=== PATIENT | female | born 1955 | race Caucasian/White ===

== ENCOUNTER → 2017-07-11 | Outpatient (CLI) | payer BC ==
--- NOTE | 2017-07-12 13:58 | MAMMOGRAPHY REPORT ---
BILATERAL DIGITAL SCREENING MAMMOGRAM TOMOSYNTHESIS WITH CAD: 07/11/2017 CLINICAL HISTORY: Routine screening. Patient has no complaints. TECHNIQUE: Breast tomosynthesis in addition to standard 2D mammography was performed. Current study was also evaluated with a Computer Aided Detection (CAD) system. COMPARISON: Comparison is made to exams dated: 07/10/2016 mammogram, 07/07/2015 mammogram, 07/06/2014 m ammogram, 07/03/2013 mammogram, 06/18/2012 mammogram, and 06/15/2011 mammogram - [facility] enter. BREAST COMPOSITION: The tissue of both breasts is almost entirely fatty. FINDINGS: No suspicious masses, calcifications, or areas of architectural distortion are noted in ei ther breast. There has been no significant interval change compared to prior exams. IMPRESSION: ACR BI-RADS CATEGORY 1: NEGATIVE There is no mammographic evidence of malignancy. A 1 year screening mammogram is recommended. The pa tient will receive written notification of the results. Approximately 10% of breast cancers are not detected with mammography. A negative mammographic report should not delay biopsy if a clinically suggestive mass is present. Florina Barros M.D. /:07/11/2017 16:17:34 Watch Engine Operator: Bailee FARIAS(Claudia)(Luis)(BD), [facility] letter sent: Normal 1/2 BI-RADS Code: ACR BI-RADS Category 1: Negative
== END | disposition home or self-care (01) ==
LOC: C.MAMM 15:34
PROVIDERS: ATTEND Family Medicine
DX: Z12.31 Encounter for screening mammogram for malignant neoplasm of breast (principal)

== ENCOUNTER → 2018-07-12 | Outpatient (CLI) | payer BC ==
--- NOTE | 2018-07-15 13:56 | MAMMOGRAPHY REPORT ---
BILATERAL DIGITAL SCREENING MAMMOGRAM TOMOSYNTHESIS WITH CAD: 07/12/2018 CLINICAL HISTORY: Routine screening. Patient has no complaints. TECHNIQUE: Breast tomosynthesis in addition to standard 2D mammography was performed. Current study w as also evaluated with a Computer Aided Detection (CAD) system. COMPARISON: Comparison is made to exams dated: 07/11/2017 mammogram, 07/10/2016 mammogram, 07/07/2015 m ammogram, 07/06/2014 mammogram, 07/03/2013 mammogram, and 06/18/2012 mammogram - [facility] enter. BREAST COMPOSITION: The tissue of both breasts is almost entirely fatty. FINDINGS: There is a newly visualized oval circumscribed 4 mm mass within the right medial breast at approximat osiel 3:00, for which targeted ultrasound and possible additional spot compression views are recommende d for further evaluation. This may represent a cyst. The remainder of both breasts are stable compared to prior exams, without suspicious masses, calcific ations, or areas of architectural distortion noted. IMPRESSION: ACR BI-RADS CATEGORY 0: INCOMPLETE EVALUATION: NEED ADDITIONAL IMAGING EVALUATION Right breast mass, for which additional imaging evaluation is recommended. The patient will be saunders d to schedule an appointment. Some breast cancers are not detected with mammography. A negative mammographic report should not shamika y biopsy if a clinically suggestive mass is present. Floirna Barros M.D. ah/:07/12/2018 16:48:22 Tree Planter: RT Tiffanie(R)(M), [facility] letter sent: Addl Imaging 0 BI-RADS Code: ACR BI-RADS Category 0: Incomplete Evaluation: Need Additional Imaging Evaluation
== END | disposition home or self-care (01) ==
LOC: C.MAMM 15:20
PROVIDERS: ATTEND Family Medicine
DX: Z12.31 Encounter for screening mammogram for malignant neoplasm of breast (principal); N63.10 Unspecified lump in the right breast, unspecified quadrant

== ENCOUNTER 2021-07-26 08:06 | Observation (INO) ==
--- NOTE | 2021-05-27 15:13 | PAT Medication Instructions ---
Medication Instructions Date of Service May 27, 2021 Home Medications Medication Instructions Recorded Wheeled Walker #1 ea 08/09/20 Wheeled Walker #1 ea 04/22/21 atorvastatin 20 mg tablet 20 mg PO QAM lisinopril 20 mg tablet 40 mg PO QAM verapamil 240 mg tablet,extended release 240 mg PO QAM A-C-E-zinc ox-cupric ox-lutein [Ocular Vitamins] 1 tab PO QAM Potassium 99 mg PO QAM aspirin [Aspir-81] 81 mg PO QAM calcium carbonate [Calcium 600] 600 mg PO QAM hydrochlorothiazide 25 mg PO QAM ibuprofen 600 mg PO BID PRN multivitamin 1 tab PO QAM ascorbic acid (vitamin C) [Vitamin C] 500 mg PO QAM ASK your surgeon for instructions ibuprofen 600 mg PO BID PRN STOP taking 2 weeks before surgery A-C-E-zinc ox-cupric ox-lutein [Ocular Vitamins] 1 tab PO QAM DO NOT take the morning of surgery lisinopril 20 mg tablet 40 mg PO QAM Potassium 99 mg PO QAM calcium carbonate [Calcium 600] 600 mg PO QAM hydrochlorothiazide 25 mg PO QAM multivitamin 1 tab PO QAM ascorbic acid (vitamin C) [Vitamin C] 500 mg PO QAM Take morning of surgery With a small sip of water, OTHERWISE NOTHING TO EAT OR DRINK AFTER MIDNIGHT: atorvastatin 20 mg tablet 20 mg PO QAM verapamil 240 mg tablet,extended release 240 mg PO QAM aspirin [Aspir-81] 81 mg PO QAM (unless surgeon directs otherwise) Other Notes If you have any questions please call us at [phone] or [phone] or [phone] or [phone]
--- NOTE | 2021-06-01 08:22 | Anesthesiology Consultation ---
Date of Service June 01, 2021 Assessment & Plan (1) Encounter for pre-operative examination: Chart Review Chart Review: Acceptable Risk for Surgery (pending preop Covid testing results ) and Patient seen in Pre Admission Testing Per PAT appt on 06/01/21, pt resides in [facility]. Wears mask per [facility] guidelines. Pt vaccinated for Covid. No known Covid positive contacts or Covid related symptoms. No known Covid infection in the past 90 days. Pt plans to attend 50 year class reunion on 07/16/21. Pt will wear mask at event. Preop Covid testing scheduled 07/22/21= will await results. Educated on importance of self quarantining, social distancing and wearing mask in public both for the patient after Covid testing done Teaching & Discussion Pre-Anesthesia Teaching/Discussion Notes: Instructed NPO after midnight before surgery,except medications with 15 cc of water. Medication instructions provided according to the PAT guidelines. History Surgery Operation Date: 07/26/21 08:50 Proposed Procedures p Right Total Knee Arthroplasty(Right) - Wood Barcenas MD Height/Weight Height: 5 ft 5.5 in Weight: 90.6 kg Allergies Allergy/AdvReac Type Severity Reaction Status Date / Time No Known Allergies Allergy Verified 05/26/21 08:31 Medications Home Medications Medication Instructions Recorded Confirmed Last Taken atorvastatin 20 mg tablet (Lipitor) 20 mg PO QAM 04/30/20 05/26/21 Unknown lisinopril 20 mg tablet 40 mg PO QAM 04/30/20 05/26/21 Unknown verapamil 240 mg tablet,extended 240 mg PO QAM 04/30/20 05/26/21 Unknown release Wheeled Walker #1 ea 08/09/20 08/09/20 Unknown Potassium 99 mg PO QAM 10/19/20 05/26/21 Unknown aspirin 81 mg tablet,delayed 81 mg PO QAM 10/19/20 05/26/21 Unknown release calcium carbonate 600 mg calcium 600 mg PO QAM 10/19/20 05/26/21 Unknown (1,500 mg) tablet (Calcium) hydrochlorothiazide 25 mg tablet 25 mg PO QAM 10/19/20 05/26/21 Unknown ibuprofen 200 mg tablet 600 mg PO BID PRN 10/19/20 05/26/21 Unknown multivitamin 1 tab PO QAM 10/19/20 05/26/21 Unknown vit A 7,160 unit-vit C 113 mg-vit 1 tab PO QAM 10/19/20 05/26/21 Unknown B-jnno-htvylk-lutein 0.5 mg tablet (Ocular Vitamins) Wheeled Walker #1 ea 04/22/21 Unknown ascorbic acid (vitamin C) 500 mg 500 mg PO QAM 05/26/21 05/26/21 Unknown tablet (Vitamin C) Past Medical History Medical History Arthritis Breast cancer left (1999), s/p left breast lumpectomy (no limb restrictions), previously on tamoxifen x 5 years No current issues Elevated cholesterol Hypertension Obesity Urinary, incontinence, stress female Exercise / Class Metabolic Activity II 4-5 Yardwork/Stairs/Walk up hill (one flight of stairs - no chest pain or SOB ) Past Family History Family History Father Family history of diabetes mellitus Mother Family history of diabetes mellitus Grandfather (Maternal) Family hx of colon cancer Other Breast cancer Colon cancer Deep vein thrombosis Past Surgical History Surgical History History of 3 sections History of anesthesia reaction Nausea with spinal for c/s History of cataract surgery R/L History of colonoscopy History of lumpectomy of left breast 1999 Past Anesthesia History No Hx of Anesthesia Complications (with exception to N/V directly after spinal anesthesia with last two C-sections ) and No Family Hx of Anesthesia Complications History of PONV No Hx of Motion Sickness and History of PONV (only with last two C-sections ) Social History Smoking Status: Never smoker Do You Dip or Chew Tobacco: No Hx Alcohol Use: Yes Alcohol type: wine alcohol intake frequency: a few times a month Hx Substance Use: No Review of Systems Patient denies chest pain, shortness of breath, dyspnea on exertion, reflux, co ugh, wheezing, palpitations. No hx of seizures, stroke, VT, no significant snoring/witnessed apnea. No hx of blood clots or blood transfusions Physical Exam Vital Signs VITALS BP 144/84 P 83 TEMP 98.1 SP02 96% RESP 16 Constitutional no acute distress ENMT Mouth: no TMJ clicking Thyromental Distance: > or= 3.5 Finger Breadths (4.0) Mallampati Class: II Crowns to molars and side teeth Permanent implant to upper right side teeth Neck neck extension not limited Respiratory normal respiratory effort; no respiratory distress Auscultation: lungs clear to auscultation bilaterally; no wheezes Cardiovascular Rate/Rhythm: regular rate and regular rhythm Heart Sounds: no murmur Vessels: no carotid bruit Musculoskeletal Spine: no pain with cervical ROM Extremities: extremities normal to inspection Psychiatric Orientation: alert Lab Results Anesthesia Preop Results Results Anesthesia Widget: WBC 7.13 K/uL (4.8-10.8) 06/01/21 Hgb 13.1 g/dL (12.0-16.0) 06/01/21 Hct 39.0 % (37-47) 06/01/21 Plt 251 K/uL (130-400) 06/01/21 Na 137 mmol/L (136-145) 06/01/21 K 4.1 mmol/L (3.5-5.1) 06/01/21 Cl 103 mmol/L (98-107) 06/01/21 CO2 29 mmol/L (21-32) 06/01/21 BUN 15 mg/dl (7-18) 06/01/21 Creat 0.66 mg/dl (0.6-1.2) 06/01/21 Glucose Level 97 mg/dl (70-99) 06/01/21 PT 9.8 Seconds (9.0-12.0) 06/01/21 PTT 23.9 Seconds (21.0-31.0) 06/01/21 INR 1.0 (0.9-1.1) 06/01/21 Blood Type O Positive 06/01/21 Antibody Screen NEGATIVE 06/01/21 Testing Electrocardiogram Date: 11/02/20 Findings: + NSR @ (73 bpm) Anterior infarct, age undetermined. (Anterior infarct noted on 09/01/2020 EKGpatient had subsequent stress test 09/02/2020 that was negative for ischemia) Chest X-Ray Date: 09/02/20 Findings: + NAD Stress Test Date: 09/02/20 Type: exercise Resting EF: 65 to 70% Resting LV Function: normal Resting RWMA: + none Valvular Disease: no significant valvular disease Negative stress echo for ischemia at 105% MPHR. Negative exercise EKG for ischemia 100% MPHR. Mild hypertensive blood pressure response to exercise. No arrhythmia. Poor to fair exercise tolerance. 5 METS achieved. Resting echo: Moderate concentric LVH. Mild left atrial dilation. Normal estimated RVSP. Grade 1 diastolic dysfunction.
--- NOTE | 2021-07-22 14:08 | History and Physical Report ---
DATE OF ADMISSION: 07/26/2021 CHIEF COMPLAINT: Bilateral knee pain and discomfort, right side greater than left. HISTORY OF PRESENT ILLNESS: A 66-year-old female who has got a long history of knee pain and discomf ort. She was actually scheduled to have her left knee replaced, but got canceled due to the COVID ep idemic. She returns for followup and further management of her knees. Both knees are hurting. The shots have become less successful over time. The right knee is actually bothering her more than the left at this time. It is a global pain. The more she is up on it, the more it hurts. She would now like to proceed with right knee replacement. PAST MEDICAL HISTORY: Significant for, 1. Hypertension. 2. Elevated cholesterol. 3. Obesity. 4. Breast cancer. PAST SURGICAL HISTORY: Includes, 1. x3. 2. Oral surgery. ALLERGIES: None. CURRENT MEDICATIONS: Include, 1. Atorvastatin. 2. Verapamil. 3. Lisinopril. 4. Ocuvite. 5. Aspirin. 6. Multivitamin. 7. Calcium. 8. Potassium. SOCIAL HISTORY: A 66-year-old female. One drink per week. Does not smoke. FAMILY HISTORY: Noncontributory. REVIEW OF SYSTEMS: Negative for diabetes. Denies any chest pain or shortness of breath. No history of DVT or PE. No known bleeding problems. PHYSICAL EXAMINATION: GENERAL: Shows a pleasant middle-aged female. Looks to be in good health. HEENT: Benign. NECK: Supple. No lymphadenopathy. LUNGS: Clear to auscultation. HEART: Has a regular rate and rhythm. ABDOMEN: Soft, nontender, nondistended. EXTREMITIES: Grossly neurovascularly intact except as follows: Examination of both knees revealed p atient walks with a bit of an antalgic gait. She has got varus alignment to both knees. She has got tenderness over the medial joint lines bilaterally. She has bony hypertrophy medially in both knees . Range of motion is symmetric with about 5 degrees short of full extension to 120 degrees of flexio n. There is no instability. No pain with hip motion on either side. X-RAYS: X-rays of both knees reveal advanced bilateral knee DJD. She has got complete loss of her m edial joint space on both sides. She got osteophytes medially. She has subchondral sclerosis. The left knee may be just slightly more advanced than the right. ASSESSMENT: A 66-year-old female with advanced bilateral knee degenerative joint disease. She was a ctually scheduled for left knee replaced in the past, but canceled it due to the COVID epidemic. She continues to be limited by her knees and would like to proceed with surgical treatment/knee replacem ent. The right knee is bothering her more now and she would like to have her right knee replaced. PLAN: We will take her to the operating room and do right total knee replacement. The risks and fernando efits of this procedure were explained to the patient including but not limited to DVT, PE, , in fection, neurological injury, vascular injury, bleeding problem, pain, limited range of motion, stiff ness, failure to relieve her symptoms, incomplete relief of symptoms, need for further surgery in the future, fracture, leg length inequality, nerve palsy, etc. The patient understands and desires to p roceed. Informed consent was obtained. We did talk about holding her lisinopril on the morning of surgery. Job ID: [id number]
[~2021-07-26 08:06] MED LIST: ACETAMINOPHEN 500 MG TAB PO SCH; BUPIVACAINE 0.5 % 5 MG/1 ML MPF 30ML VIAL ONE; BUPIVACAINE 0.5 % 5 MG/1 ML PF 10ML VIAL ONE; BUPIVACAINE LIPOSOME/PF 266 MG, BUPIVACAINE/EPINEPHRINE 50 ML, SODIUM CHLORIDE 0.9% 30 ... INFIL SCH; FAMOTIDINE 20 MG TAB PO SCH; GABAPENTIN 300 MG CAP PO SCH; LR 500ML BOLUS, THEN 15ML/HR IV SCH; LR 60ML/HR IV SCH; Scopolamine 1 MG TDSY TD SCH; TRANEXAMIC ACID 1,000 MG **IV Intra-op IV SCH; ceFAZolin 2000MG 2,000 MG/15 ML SYR IV SCH
--- NOTE | 2021-07-26 08:52 | History & Physical Bridge Note ---
Date of Service July 26, 2021 History & Physical Bridge Note I have examined the patient, reviewed the History & Physical and in the interval since the performance of the History & Physical I have noted the following changes of clinical significance: no changes noted
[2021-07-26] MEDS ORDERED: MIDAZOLAM HCL 1 MG/ML 2ML VIAL ONE (09:21)
[2021-07-26] MEDS ORDERED: ePHEDrine sulfate 50 MG/ML AMP IV PRN (10:13)
[2021-07-26] MEDS ORDERED: ATROPINE SULFATE 0.1 MG/ML 10ML SYR IV PRN (10:13)
[2021-07-26] MEDS ORDERED: fentaNYL citrate 100 MCG/2 ML VIAL IV PRN (10:13)
[2021-07-26] MEDS ORDERED: ONDANSETRON INJ 2 MG/ML 2 ML VIAL IV PRN ×2 (10:13→13:58)
[2021-07-26] MEDS ORDERED: HYDROmorphone INJ 2 MG/ML SYR/VIAL IV PRN (10:13)
[2021-07-26] MEDS ORDERED: BUPIVACAINE LIPOSOME 1.3% 266 MG/20 ML VIAL ONE (10:54)
[2021-07-26] MEDS ORDERED: SODIUM CHLORIDE 0.9% PF 50 ML VIAL ONE (10:54)
[2021-07-26] MEDS ORDERED: EPINEPHrine INJ 1 MG/ML AMP ONE (10:55)
[2021-07-26] MEDS ORDERED: BUPIVACAINE 0.25% 30 ML VIAL ONE (10:55)
[2021-07-26] MEDS ORDERED: LIDOCAINE 2% 2 ML VIAL/AMP(20MG/ML) INFIL ONE (11:29)
[2021-07-26] MEDS ORDERED: PROPOFOL IV EMULSION 10 MG/ML 20 ML VIAL IV ONE (11:29)
--- NOTE | 2021-07-26 13:04 | Operative Report ---
Post Operative Report Pre & Post Diagnosis Operation Date: 07/26/21 10:40 Pre-Op Diagnosis: Right Knee Advanced Degenerative Joint Disease Post-Op Diagnosis: Right Knee Advanced Degenerative Joint Disease I identified the patient and participated in the time-out.: Yes Procedure Operation Date: 07/26/21 10:40 Actual Procedures p Right Total Knee Arthroplasty(Right) - Wood Barcenas MD Surgeon Wood Barcenas MD Real Estate Services Coordinator Pete Cunningham PA-C Estimated Blood Loss 50 Findings Consistent with Post-Op Diagnosis Operative findings were advanced right knee tricompartment DJD. She had a grade 4 changes in all 3 compartments most severe in the medial compartment. Pretty extensive disease elsewhere as well. Moderate-sized joint effusion. Couple loose bodies. Osteophytes in all 3 compartments. Fluids 1100 cc. Specimens Right knee sent for pathology. Drains None. Anesthesia Type Spinal MAC Complications none Disposition Accompanied Patient To Recovery: No Indications Patient is a 66-year-old who has had a long history of bilateral knee pain discomfort. That she been through extensive conservative treatment which became less successful over time. Is actually scheduled for knee replacement the past but canceled due to the Covid epidemic. She now presents for right knee replacement. Description of Procedure Operative input consisted of: 1. Biomet Vanguard size 65 right posterior stabilized femoral component. 2. Biomet size 67 tibial tray. 3. 10 mm posterior stabilized polyethylene insert. 4. 28 x 8 all polypatella. The patient was taken to the operating, identified, and placed on the operating table supine position but all contractors were properly padded. IV antibiotics were provided by anesthesia team. A spinal anesthetic and abductor canal block had been applied in the holding area. Wilhelm catheter was placed in sterile fashion. Right thigh tip was then placed in the right lower extremities and prepped draped in usual sterile fashion. Right leg was elevated exsanguinated with use of an Esmarch interspace at 3 mmHg. An anterior approach of the right knee was then performed through longitudinal incision centered over the patella. Sharp dissection was carried through subcutaneous this down the extensor mechanism. A medial parapatellar arthrotomy incision was made. Some subperiosteal dissection was carried out medially. The fat pad was resected beneath patella tendon. The lateral patellofemoral ligament was released. Patella was subluxated laterally and the knee was flexed. The osteophytes were taken off distal femur. The ACL and PCL were then released from the distal femur and the tibia subluxated anteriorly. The external tibial alignment jig was then placed in the interface the tibia and adjusted 14 mm medially. Proximal tibial cut was made remove about a millimeter bone from most deficient aspect medial tibial plateau. Some osteophytes were taken off medial and posterior medially. The tibia sized to a size 67. Attention drawn the femur. The distal femur was entered with a sharp drop with intramedullary canal was suction. A right 5 degree valgus cutting guide was placed. Distal femoral cutting block was pinned in place. Distal femoral cut was made to take an additional 3 mm of bone off distal femur. The femur was then sized to a size 65. We downsized this almost an entire size. The AP cutting block was pinned parallel to the epicondylar axis which was 4 degrees of external rotation. Anterior cut, anterior chamfer, posterior cut, posterior chamfer cuts were made. The box cutting guide was placed in just slight lateral box cut was made. The knee was flexed. The remnants of the medial and lateral menisci were excised. The osteophytes were taken off the posterior aspect of femur. Trial femoral component was placed. The tibial tray was pinned in maximum external rotation and the drill and stem punch were used to create defect in proximal tibia for the tibial tray. Knee was then trialed and the 10 mm insert fit most appropriately. Attention drawn to the patella. The patella was cleaned of all soft tissues. Patella thickness measured 18 mm in thickness was cut down to 12. Sized to a size 28 patella. The lug holes for the 28 patella were then placed. The lateral osteophyte is moved. Patella button was placed. Knee was taken through range of motion patella tracked nicely with no thumbs test. Attention drawn to placing permanent components. All trial components were removed. Bone plug was placed into the distal femur limit blood loss. Double batch [place] G cement was mixed. Biomet [employer] size 65 right posterior stabilized femoral component, size 67 tibial tray, 10 mm posterior stabilized polyethylene insert, and a 28 x 8 all polypatella then cemented in place. Knee was brought out in full extension total cement hardened. Final cement check was then performed. Pericapsular tissues were injected with total of 100 cc of combination of 20 cc of Exparel, 30 cc normal saline, 50 cc of quarter percent Marcaine with epinephrine. Patient did receive 1 g tranexamic acid. The tourniquet was let down for final turn time 53 minutes. Hemostasis surgery electrocautery. The extensor mechanism closed with combination 1 PDS suture and #1 Vicryl suture in [id number] fashion to the extensor mechanism checked found to be intact and subcutaneous tissue then closed with 2 Dexon suture in a buried interrupted fashion skin was closed skin shima. Leg was then cleaned and dried a sterile dressing with Xeroform, 4 x 4's, sterile cast padding, Silvio bandage were applied. Patient then transferred to the recovery room in stable condition. Patient tolerated procedure well and there were no complications. Pete Cunningham, my physician nurse's assistant, was present for the entire procedure. His assistance was essential and required for appropriate patient positioning, prepping and draping, surgical exposure, performing the technical details of the operation, placement the implants, closure of the wound, and placement of the sterile bandage. I attest to the content of the Intraoperative Record and any orders documented therein. Any exceptions are noted below.
--- NOTE | 2021-07-26 13:22 | Anesthesiology Progress Note ---
Date of Service July 26, 2021 Anesthesia Post Procedure Vital Signs Vital Signs: Temp Pulse Pulse Resp BP Pulse Ox 07/26/21 13:15 58 L 14 125/65 100 07/26/21 13:05 66 13 115/62 100 07/26/21 12:59 36.6 C 71 88 14 123/64 100 07/26/21 09:58 37.2 C 88 20 162/93 H 98 07/26/21 08:42 37.5 C 80 20 143/96 H 98 Pain Intensity Right Knee: Pain Intensity: 5 Transfer of Care Handoff Completed per policy Notes Mental Status: alert / awake / arousable and participated in evaluation Patient Amnestic to Procedure: Yes Nausea / Vomiting: adequately controlled Pain: adequately controlled Airway Patency, RR, SpO2: stable & adequate BP & HR: stable & adequate Hydration State: stable & adequate Anesthetic Complications: no major complications apparent and Pt Satisfied with anesthetic care
--- NOTE | 2021-07-26 13:44 | XRay Report ---
XR knee RT 1 or 2V routine CLINICAL HISTORY: Postoperative evaluation. COMPARISON: Knee radiographs April 30, 2020. FINDINGS: Alignment of the total right knee arthroplasty is anatomic. No periprosthetic fracture. Th ere is no unexpected radiopaque foreign body. There are skin shima. IMPRESSION: Expected findings following total right knee arthroplasty. ACT 112: Negative or not required by law. Electronically signed by: Piero Henson M.D. 07/26/2021 1:43 PM
[2021-07-26] MEDS ORDERED: HYDROmorphone INJ 0.5 MG/0.5 ML SYR IV PRN (13:58)
[2021-07-26] MEDS ORDERED: oxyCODONE HCL IR 5 MG TAB (IMMEDIATE RELEASE) PO PRN (13:58)
[2021-07-26] MEDS ORDERED: bisacodyL 10 MG SUPP PR PRN (13:58)
[2021-07-26] MEDS ORDERED: MAGNESIUM HYDROXIDE SUSP 30 ML UDC PO PRN (13:58)
[2021-07-26] MEDS ORDERED: NALOXONE HCL 0.4 MG/1 ML VIAL/CARP IV PRN (13:58)
[2021-07-26] MEDS ORDERED: ALUMINUM/MAGNESIUM SUSP 30 ML UDC PO PRN (13:58)
[2021-07-26] MEDS ORDERED: METOCLOPRAMIDE HCL INJ 5 MG/ML 2 ML VIAL IV PRN (13:58)
[2021-07-26] MEDS: SODIUM CHLORIDE 0.9% 1000ML 1,000 ML IV SCH (15:33)
[2021-07-26] MEDS: Scopolamine CHECK PATCH PLACEMENT SCH (15:34)
[2021-07-26] MEDS: ACETAMINOPHEN 500 MG TAB PO SCH ×2 (15:37→22:41)
[2021-07-26] MEDS: KETOROLAC TROMETHAMINE 15 MG/ML VIAL IV SCH ×2 (15:38→20:03)
[2021-07-26] MEDS: ceFAZolin 2000MG 2,000 MG/15 ML SYR IV SCH (18:22)
[2021-07-26] MEDS ORDERED: TRANEXAMIC ACID / 0.7% NACL 1,000 MG/100 ML BAG IV SCH (19:00)
[2021-07-26] MEDS ORDERED: SENNA 8.6 MG TAB PO SCH (21:00)
[2021-07-26] MEDS: DOCUSATE SODIUM 100 MG CAP PO SCH (22:39)
[2021-07-26] MEDS: ASPIRIN 81 MG ECTAB PO SCH (22:39)
[2021-07-26] MEDS: TAPENTADOL HCL ER 50 MG TABCR PO SCH (22:41)
[2021-07-27] MEDS: Scopolamine CHECK PATCH PLACEMENT SCH ×2 (01:14→08:14)
[2021-07-27] MEDS: ceFAZolin 2000MG 2,000 MG/15 ML SYR IV SCH (02:08)
[2021-07-27] MEDS: KETOROLAC TROMETHAMINE 15 MG/ML VIAL IV SCH ×2 (02:08→08:12)
[2021-07-27] MEDS: SODIUM CHLORIDE 0.9% 1000ML 1,000 ML IV SCH (02:50)
[2021-07-27] MEDS: ACETAMINOPHEN 500 MG TAB PO SCH (06:15)
[2021-07-27 06:38] LABS: Hematocrit (blood only) 32.8 % (37-47); Hemoglobin 10.7 g/dL (12.0-16.0); Mean Corpuscular Hemoglobin 30.1 pg (25-34); Mean Corpuscular Hgb Conc 32.6 g/dL (32-36); Mean Corpuscular Volume 92.4 fL (80-100); Mean Platelet Volume 10.6 fL (7.4-10.4); Platelet Count 204 K/uL (130-400); RDW Coefficient of Variation 13.4 % (11.5-14.5); RDW Standard Deviation 45.4 fL (36.4-46.3); Red Blood Count 3.55 M/uL (4.2-5.4); White Blood Count 9.97 K/uL (4.8-10.8)
[2021-07-27 07:05] LABS: BUN Creatinine Ratio 17.4 (10-20); Calcium 8.8 mg/dl (8.5-10.1); Creatinine Clr Calc Pharmacy 84.1 ml/min; Est GFR (African American) 99.7 ml/min; Est GFR (Non-African American) 86.1 ml/min
[2021-07-27] MEDS ORDERED: dexAMETHasone 10 MG in SYRINGE 0 ML IV SCH (08:00)
[2021-07-27] MEDS: ASPIRIN 81 MG ECTAB PO SCH (08:13)
[2021-07-27] MEDS: DOCUSATE SODIUM 100 MG CAP PO SCH (08:14)
[2021-07-27] MEDS: TAPENTADOL HCL ER 50 MG TABCR PO SCH (08:14)
[2021-07-27] MEDS ORDERED: VERAPAMIL HCL 240 MG TABCR PO SCH (09:00)
[2021-07-27] MEDS ORDERED: lisinopril 40 MG TAB PO SCH (09:00)
[2021-07-27] MEDS ORDERED: hydroCHLOROthiazide 25 MG TAB PO SCH (09:00)
[2021-07-27] MEDS ORDERED: ASCORBIC ACID 500 MG TAB PO SCH (09:00)
[2021-07-27] MEDS ORDERED: CALCIUM 600MG + VIT D 400 IU TAB PO SCH (09:00)
[2021-07-27] MEDS ORDERED: ATORVASTATIN 20 MG TAB PO SCH (09:00)
[2021-07-27] MEDS ORDERED: NON-FORMULARY MEDICATION (Potassium 99 MG) PO SCH (09:00)
[2021-07-27] MEDS ORDERED: MULTIVITAMIN TAB PO SCH ×2 (09:00)
[2021-07-27] MEDS ORDERED: [UNRECOGNIZED DRUG - OTHER] PO SCH (09:00)
--- NOTE | 2021-07-27 14:09 | Progress Notes ---
DATE OF SERVICE: 07/27/2021 SUBJECTIVE: A 66-year-old white female postoperative day 1 from right knee replacement. She is doin g pretty well. Therapy has gone well. Pain is reasonably well controlled. No chest pain or shortne ss of breath. Not feeling dizzy or lightheaded. OBJECTIVE: VITAL SIGNS: Temperature 36.9. Vital signs stable. PHYSICAL EXAMINATION: GENERAL: Shows a pleasant middle-aged female. She was walking in the hallways with the therapist mike moreno I visited today. EXTREMITIES: Examination of the right leg reveals the dressing to be clean, dry and intact. She can dorsiflex and plantarflex her foot appropriately. She is neurologically intact. LABORATORY DATA: Hemoglobin 10.7. Hematocrit 32.8. Electrolytes are stable. ASSESSMENT: A 66-year-old white female postoperative day 1 from right knee replacement, doing pretty well. Pain is controlled. She is neurologically intact. PLAN: 1. DVT prophylaxis includes thigh-high TEDs, SCDs, and aspirin twice a day. 2. PT, OT, weightbear as tolerated. Right total knee protocol. 3. Pain control, doing pretty well with current pain regimen. 4. Disposition: Plan to discharge to home with some home health today after therapy. Job ID: [id number]
== END 2021-07-27 13:52 | disposition home health service (06) ==
LOC: ASU 08:06 → 3E 08:06
DX: Z79.82 Long term (current) use of aspirin; Z20.822 Contact with and (suspected) exposure to COVID-19; I10 Essential (primary) hypertension; Z85.3 Personal history of malignant neoplasm of breast; E78.00 Pure hypercholesterolemia, unspecified; Z79.899 Other long term (current) drug therapy; E66.9 Obesity, unspecified; M17.0 Bilateral primary osteoarthritis of knee

== ENCOUNTER 2025-06-23 05:17 | Observation (INO) ==
--- NOTE | 2025-05-19 15:02 | PAT Medication Instructions ---
Medication Instructions Date of Service May 19, 2025 Home Medications Medication Instructions Recorded Wheeled Walker #1 ea 08/09/20 Wheeled Walker #1 ea 07/19/21 amoxicillin 500 mg tablet 2,000 mg (4 x 500 mg) PO ONCE #4 09/28/21 tabs acetaminophen 500 mg capsule 1,000 mg (2 x 500 mg) PO TID Pain 01/15/22 30 days #180 caps ketorolac 10 mg tablet 10 mg PO Q6 Pain 5 days #20 tabs 01/15/22 sennosides 8.6 mg-docusate sodium 1 tab-cap PO DAILY #14 tabs 01/15/22 50 mg tablet (Senokot-S) ondansetron HCl 4 mg tablet 4 mg PO Q6 PRN nausea #30 tabs 01/24/22 oxycodone 5 mg tablet 5 - 10 mg (1 - 2 x 5 mg) PO Q6 PRN 01/24/22 pain #40 tabs oxycodone 5 mg tablet 5 mg PO Q6 PRN pain #30 tabs 02/02/22 atorvastatin 20 mg tablet (Lipitor) 20 mg PO QAM calcium carbonate (Calcium 600) 600 mg PO QAM hydrochlorothiazide 25 mg tablet 25 mg PO QAM multivitamin 1 tab PO QAM vit A 7,160 unit-vit C 113 mg-vit D-gizm-nyekjy-lutein 0.5 mg tablet (Ocular Vitamins) 1 tab PO QAM ascorbic acid (vitamin C) 500 mg tablet (Vitamin C) 500 mg PO QAM amoxicillin 500 mg tablet 2,000 mg (4 x 500 mg) PO ONCE acetaminophen 500 mg capsule 1,000 mg (2 x 500 mg) PO TID ketorolac 10 mg tablet 10 mg PO Q6 sennosides 8.6 mg-docusate sodium 50 mg tablet (Senokot-S) 1 tab-cap PO DAILY ondansetron HCl 4 mg tablet 4 mg PO Q6 PRN oxycodone 5 mg tablet 5 - 10 mg (1 - 2 x 5 mg) PO Q6 PRN oxycodone 5 mg tablet 5 mg PO Q6 PRN amlodipine 10 mg tablet 10 mg PO QAM aspirin 81 mg tablet,delayed release (Adult Aspirin Regimen) 81 mg PO QAM biotin 5 mg tablet 5 mg PO DAILY carvedilol 12.5 mg tablet 12.5 mg PO BID clonidine HCl 0.2 mg tablet 0.2 mg PO BID oxybutynin chloride 15 mg tablet,extended release 24 hr 15 mg PO QAM tolterodine 4 mg capsule,extended release 24 hr 4 mg PO QAM Continue as directed amoxicillin 500 mg tablet 2,000 mg (4 x 500 mg) PO ONCE ASK your surgeon for instructions ketorolac 10 mg tablet 10 mg PO Q6 ASK your prescriber and surgeon aspirin 81 mg tablet,delayed release (Adult Aspirin Regimen) 81 mg PO QAM STOP taking 2 weeks before surgery (or as soon as possible if surgery is within 2 weeks) vit A 7,160 unit-vit C 113 mg-vit N-rnfo-xlobev-lutein 0.5 mg tablet (Ocular Vitamins) 1 tab PO QAM biotin 5 mg tablet 5 mg PO DAILY DO NOT take the morning of surgery calcium carbonate (Calcium 600) 600 mg PO QAM hydrochlorothiazide 25 mg tablet 25 mg PO QAM multivitamin 1 tab PO QAM ascorbic acid (vitamin C) 500 mg tablet (Vitamin C) 500 mg PO QAM sennosides 8.6 mg-docusate sodium 50 mg tablet (Senokot-S) 1 tab-cap PO DAILY oxybutynin chloride 15 mg tablet,extended release 24 hr 15 mg PO QAM tolterodine 4 mg capsule,extended release 24 hr 4 mg PO QAM Take morning of surgery With a small sip of water, OTHERWISE NOTHING TO EAT OR DRINK AFTER MIDNIGHT: atorvastatin 20 mg tablet (Lipitor) 20 mg PO QAM acetaminophen 500 mg capsule 1,000 mg (2 x 500 mg) PO TID ondansetron HCl 4 mg tablet 4 mg PO Q6 PRN(if needed) oxycodone 5 mg tablet 5 - 10 mg (1 - 2 x 5 mg) PO Q6 PRN(if needed) oxycodone 5 mg tablet 5 mg PO Q6 PRN(if needed) amlodipine 10 mg tablet 10 mg PO QAM carvedilol 12.5 mg tablet 12.5 mg PO BID clonidine HCl 0.2 mg tablet 0.2 mg PO BID Take evening before surgery acetaminophen 500 mg capsule 1,000 mg (2 x 500 mg) PO TID ondansetron HCl 4 mg tablet 4 mg PO Q6 PRN(if needed) oxycodone 5 mg tablet 5 - 10 mg (1 - 2 x 5 mg) PO Q6 PRN(if needed) oxycodone 5 mg tablet 5 mg PO Q6 PRN(if needed) carvedilol 12.5 mg tablet 12.5 mg PO BID clonidine HCl 0.2 mg tablet 0.2 mg PO BID Other Notes If you have any questions please call us at [phone] or [phone] or [phone] or [phone]
--- NOTE | 2025-05-29 09:10 | Anesthesiology Consultation ---
Date of Service May 29, 2025 Assessment & Plan (1) Encounter for pre-operative examination: - Infectious disease screening: Per assessment on 05/29/25- No known recent infectious disease contacts or current infectious disease symptoms. - Outpatient joint assessment: Pt currently scheduled for inpatient pathway. If surgeon requests review for outpatient joint pathway, patient is not recommended candidate for outpatient joint program from anesthesia standpoint based on available information. - S/P Left TKR (01/17/2022): SAB at L3-4 (3 attempts) + regional at [facility] Chart Review Chart Review: Acceptable Risk for Surgery and Patient seen in Pre Admission Testing Teaching & Discussion Pre-Anesthesia Teaching/Discussion Notes: Instructed NPO after midnight before surgery,except medications with 15 cc of water. Medication instructions provided according to the PAT guidelines. History Surgery Operation Date: 06/23/25 07:00 Proposed Procedures p Right Total Hip Arthroplasty - Wood Barcenas MD Height/Weight Height: 5 ft 5.5 in Weight: 106.3 kg Allergies Allergy/AdvReac Type Severity Reaction Status Date / Time No Known Allergies Allergy Verified 05/19/25 12:48 Medications Home Medications Medication Instructions Recorded Confirmed Last Taken atorvastatin 20 mg tablet (Lipitor) 20 mg PO QAM 04/30/20 05/19/25 01/16/22 09:00 Wheeled Walker #1 ea 08/09/20 12/19/21 Unknown calcium carbonate (Calcium 600) 600 mg PO QAM 10/19/20 05/19/25 01/16/22 09:00 hydrochlorothiazide 25 mg tablet 25 mg PO QAM 10/19/20 05/19/25 01/16/22 09:00 multivitamin 1 tab PO QAM 10/19/20 05/19/25 01/16/22 09:00 vit A 7,160 unit-vit C 113 mg-vit 1 tab PO QAM 10/19/20 05/19/25 01/02/22 N-qquf-eziyyy-lutein 0.5 mg tablet (Ocular Vitamins) ascorbic acid (vitamin C) 500 mg 500 mg PO QAM 05/26/21 05/19/25 01/02/22 tablet (Vitamin C) Wheeled Walker #1 ea 07/19/21 12/19/21 Unknown amoxicillin 500 mg tablet 2,000 mg (4 x 500 mg) PO ONCE #4 09/28/21 05/19/25 Unknown tabs acetaminophen 500 mg capsule 1,000 mg (2 x 500 mg) PO TID Pain 01/15/22 05/19/25 Unknown 30 days #180 caps sennosides 8.6 mg-docusate sodium 1 tab-cap PO DAILY #14 tabs 01/15/22 05/19/25 Unknown 50 mg tablet (Senokot-S) amlodipine 10 mg tablet 10 mg PO QAM 05/19/25 05/19/25 Unknown aspirin 81 mg tablet,delayed 81 mg PO QAM 05/19/25 05/19/25 Unknown release (Adult Aspirin Regimen) biotin 5 mg tablet 5 mg PO DAILY 05/19/25 05/19/25 Unknown carvedilol 12.5 mg tablet 12.5 mg PO BID 05/19/25 05/19/25 Unknown clonidine HCl 0.2 mg tablet 0.2 mg PO BID 05/19/25 05/19/25 Unknown oxybutynin chloride 15 mg 15 mg PO QAM 05/19/25 05/19/25 Unknown tablet,extended release 24 hr tolterodine 4 mg capsule,extended 4 mg PO QAM 05/19/25 05/19/25 Unknown release 24 hr olmesartan 40 mg tablet 40 mg PO DAILY 05/29/25 05/29/25 Unknown Past Medical History Medical History Arthritis Breast cancer Left (1999) s/p left breast lumpectomy (no limb restrictions per patient) Previously on tamoxifen x 5 years Elevated cholesterol Hypertension Obesity Urinary, incontinence, stress female Exercise / Class Metabolic Activity III < 4 Walking/Shop/Light housework Past Family History Family History Father Family history of diabetes mellitus Mother Family history of diabetes mellitus Grandfather (Maternal) Family hx of colon cancer Other Breast cancer Colon cancer Deep vein thrombosis Past Surgical History Surgical History History of 3 sections History of anesthesia reaction Nausea with spinal for c/s History of cataract surgery R/L History of colonoscopy History of lumpectomy of left breast 1999 History of tooth extraction History of total left knee replacement Left TKR: SAB at L3-4 (3 attempts) + regional at [facility] (01/17/2022) History of total right knee replacement SAB at L3-L4, 1 attempt + PNB (07/26/2021) Past Anesthesia History No Hx of Anesthesia Complications and No Family Hx of Anesthesia Complications History of PONV No Hx of Motion Sickness and History of PONV (Nausea with spinal for c/s) Social History Smoking Status: Never smoker Do You Dip or Chew Tobacco: No Hx Alcohol Use: Yes Alcohol type: wine alcohol intake frequency: holidays/special occasions only Hx Substance Use: No substance use type: does not use Review of Systems Patient denies chest pain, shortness of breath, fever, chills, cough, wheezing, palpitations. Physical Exam Vital Signs BP 116/75 P 69 TEMP 98.2 SP02 96%RA RESP 16 Physical Full cervical extension range of motion. Full TMJ range of motion. TMD > 3.5 finger breaths Mallampati Score II Dentition: intact, + implant (right upper side) Lungs: clear throughout to auscultation Cardiac: regular rate and rhythm, no murmurs noted Spine: normal Carotid arteries: negative bruit Extremities: trace LE edema Lab Results Anesthesia Preop Results Results Anesthesia Widget: WBC 7.30 K/ul (4.8-10.8) 05/29/25 Hgb 12.2 g/dl (12.0-16.0) 05/29/25 Hct 36.1 % (37.0-47.0) L 05/29/25 Plt 214 K/uL (130-400) 05/29/25 Na 142 mmol/L (136-145) 05/29/25 K 4.1 mmol/L (3.5-5.1) 05/29/25 Cl 103 mmol/L (98-107) 05/29/25 CO2 32 mmol/L (21-32) 05/29/25 BUN 22 mg/dl (6-23) 05/29/25 Creat 0.76 mg/dl (0.6-1.2) 05/29/25 Glucose Level 138 mg/dl (70-99(Fasting)) H 05/29/25 PT 10.8 Seconds (9.0-12.0) 05/29/25 PTT 24 Seconds (21-31) 05/29/25 INR 1.0 (0.9-1.1) 05/29/25 Blood Type O Positive 05/29/25 Antibody Screen NEGATIVE 05/29/25 Testing Electrocardiogram Date: 05/29/25 NSR at 65bpm. PRWP, consider anterior TN vs lead placement vs LVH. Chest X-Ray Date: 05/29/25 Impression: 1. No active cardiopulmonary disease. No other abnormality is noted. Stress Test Date: 09/02/20 Negative exercise stress test MPHR 105% EF 65-70% No regional wall motion abnormalities Moderate cLVH Mild left atrial dilation No significant valvular abnormalities
--- NOTE | 2025-06-18 07:25 | History & Physical Report ---
Date of Service June 18, 2025 Assessment & Plan (1) Arthritis of right hip: 70-year-old femaleWith advanced right hip arthritis. She has failed conservative treatment. She like to have her hip fixed. Plan: We are going to take her to the operating room and proceed with right total hip replacement. The risks met this procedure explained. Informed consent was obtained. (2) History of total left knee replacement: (3) History of total right knee replacement: (4) Obesity: (5) Hypertension: History of Present Illness Chief Complaint: . Right hip and leg pain. Right hip and leg pain Primary Care Provider: Leland Damon . The patient is a 70-year-old female 1 and 2 me from previous knee replacements. She is about 3 years out from a left knee replacement and 2 and half years out from the right and doing pretty well. Over the past year she has developed increased pain discomfort in her right hip and groin and thigh area. Radiates down to her knee but no further. No numbness or radicular symptoms. She limps more as the day goes on.The patient she takes medicine with minimal relief.. Allergies Allergy/AdvReac Type Severity Reaction Status Date / Time No Known Allergies Allergy Verified 05/19/25 12:48 Home Medications Medication Instructions Recorded Confirmed Type atorvastatin 20 mg tablet (Lipitor) 20 mg PO QAM 04/30/20 05/19/25 History Wheeled Walker #1 ea 08/09/20 12/19/21 Rx calcium carbonate (Calcium 600) 600 mg PO QAM 10/19/20 05/19/25 History hydrochlorothiazide 25 mg tablet 25 mg PO QAM 10/19/20 05/19/25 History multivitamin 1 tab PO QAM 10/19/20 05/19/25 History vit A 7,160 unit-vit C 113 mg-vit 1 tab PO QAM 10/19/20 05/19/25 History O-mvwe-lkhwnk-lutein 0.5 mg tablet (Ocular Vitamins) ascorbic acid (vitamin C) 500 mg 500 mg PO QAM 05/26/21 05/19/25 History tablet (Vitamin C) Wheeled Walker #1 ea 07/19/21 12/19/21 Rx amoxicillin 500 mg tablet 2,000 mg (4 x 500 mg) PO ONCE #4 09/28/21 05/19/25 Rx tabs acetaminophen 500 mg capsule 1,000 mg (2 x 500 mg) PO TID Pain 01/15/22 05/19/25 Rx 30 days #180 caps sennosides 8.6 mg-docusate sodium 1 tab-cap PO DAILY #14 tabs 01/15/22 05/19/25 Rx 50 mg tablet (Senokot-S) amlodipine 10 mg tablet 10 mg PO QAM 05/19/25 05/19/25 History aspirin 81 mg tablet,delayed 81 mg PO QAM 05/19/25 05/19/25 History release (Adult Aspirin Regimen) biotin 5 mg tablet 5 mg PO DAILY 05/19/25 05/19/25 History carvedilol 12.5 mg tablet 12.5 mg PO BID 05/19/25 05/19/25 History clonidine HCl 0.2 mg tablet 0.2 mg PO BID 05/19/25 05/19/25 History oxybutynin chloride 15 mg 15 mg PO QAM 05/19/25 05/19/25 History tablet,extended release 24 hr tolterodine 4 mg capsule,extended 4 mg PO QAM 05/19/25 05/19/25 History release 24 hr olmesartan 40 mg tablet 40 mg PO DAILY 05/29/25 05/29/25 History Past Med/Surg History Problem List Arthritis of right hip Encounter for pre-operative examination Degenerative arthritis of knee, bilateral Medical History Obesity Arthritis Urinary, incontinence, stress female Elevated cholesterol Breast cancer Left (1999) s/p left breast lumpectomy (no limb restrictions per patient) Previously on tamoxifen x 5 years Hypertension Surgical History History of tooth extraction History of total left knee replacement Left TKR: SAB at L3-4 (3 attempts) + regional at [facility] (01/17/2022) History of total right knee replacement SAB at L3-L4, 1 attempt + PNB (07/26/2021) History of anesthesia reaction Nausea with spinal for c/s History of colonoscopy History of lumpectomy of left breast 1999 History of cataract surgery R/L History of 3 sections Family History Father Family history of diabetes mellitus Mother Family history of diabetes mellitus Grandfather (Maternal) Family hx of colon cancer Other Breast cancer Colon cancer Deep vein thrombosis Social History Smoking Status: Never smoker Second Hand Exposure: No; Do You Dip or Chew Tobacco: No; Hx Alcohol Use: Yes Alcohol type: wine Hx Substance Use: No Preferred Language: Cymraes Communication Ability: Effective Wharf Tender Required: No Beliefs That Will Affect Care: None marital status: Current Living Situation: Spouse Feels Safe at Home: Yes Assistive Devices: Cane and Glasses Review of Systems All systems reviewed & are unremarkable except as noted in HPI & below. Physical Exam . Physical examination reveals a pleasant middle-age female. Looks been pretty good health. Examination of the right hip and leg reveal patient walks with a slight bit of a limp. Leg lengths clinically appear pretty equal. She got a lot of stiffness with hip motion. She can internally rotate to neutral. Negative straight leg raise. She is neurologically intact. Her knee incision on the sides well-healed without swelling. Range of motion 0-1 20. Results & Data Results & Data Laboratory Results . Diagnostic Findings . X-rays of the right hip are advanced hip arthritis. She got complete loss of her superior joint space. PG Care Time/CCT Total # of Minutes Spent Total Time Spent with Patient: Total time spent is greater than 50% in coordination of care (as documented) at patient's floor/unit and/or counseling patient: Coding Level of Care Code None Diagnoses Arthritis of right hip M16.11 History of total left knee replacement Z96.652 History of total right knee replacement Z96.651 Obesity E66.9 Hypertension I10
[~2025-06-23 05:17] MED LIST changes: -ACETAMINOPHEN 500 MG TAB PO SCH; -BUPIVACAINE 0.5 % 5 MG/1 ML MPF 30ML VIAL ONE; -BUPIVACAINE 0.5 % 5 MG/1 ML PF 10ML VIAL ONE; -BUPIVACAINE LIPOSOME/PF 266 MG, BUPIVACAINE/EPINEPHRINE 50 ML, SODIUM CHLORIDE 0.9% 30 ... INFIL SCH; -FAMOTIDINE 20 MG TAB PO SCH; -GABAPENTIN 300 MG CAP PO SCH; -LR 60ML/HR IV SCH; -Scopolamine 1 MG TDSY TD SCH; -TRANEXAMIC ACID 1,000 MG **IV Intra-op IV SCH; -ceFAZolin 2000MG 2,000 MG/15 ML SYR IV SCH
[2025-06-23] MEDS: LR 60ML/HR IV SCH (05:39)
[2025-06-23] MEDS: LR 500ML BOLUS, THEN 15ML/HR IV SCH (05:40)
[2025-06-23] MEDS: ACETAMINOPHEN 500 MG TAB PO SCH ×2 (05:42→13:20)
[2025-06-23] MEDS: FAMOTIDINE 20 MG TAB PO SCH (05:43)
[2025-06-23] MEDS: CeleBREX 200 MG CAP PO SCH (05:43)
[2025-06-23] MEDS: METOCLOPRAMIDE HCL 10 MG TABLET PO SCH (05:43)
[2025-06-23] MEDS: dexAMETHasone**PF** 10 MG/ML VIAL IV SCH (05:43)
[2025-06-23] MEDS ORDERED: BUPIVACAINE 0.5 % 5 MG/1 ML PF 10ML VIAL ONE (06:19)
[2025-06-23] MEDS ORDERED: ONDANSETRON INJ 2 MG/ML 2 ML VIAL IV PRN ×2 (06:33→10:24)
[2025-06-23] MEDS ORDERED: ATROPINE SULFATE 0.1 MG/ML 10ML SYR IV PRN (06:33)
[2025-06-23] MEDS ORDERED: MIDAZOLAM HCL 1 MG/ML 2ML VIAL ONE (06:35)
[2025-06-23] MEDS ORDERED: PROPOFOL IV EMULSION 10 MG/ML 20 ML VIAL IV ONE ×2 (06:36→08:03)
--- NOTE | 2025-06-23 06:42 | History & Physical Bridge Note ---
Date of Service June 23, 2025 History & Physical Bridge Note I have examined the patient, reviewed the History & Physical and in the interval since the performance of the History & Physical I have noted the following changes of clinical significance: no changes noted
[2025-06-23] MEDS: TRANEXAMIC ACID 1,000 MG **IV Pre-op IV SCH (06:44)
[2025-06-23] MEDS ORDERED: PHENYLEPHRINE 100MCG/ML 5ML SYR ONE (07:37)
[2025-06-23] MEDS ORDERED: ONDANSETRON INJ 2 MG/ML 2 ML VIAL ONE (07:37)
[2025-06-23] MEDS: BUPIVACAINE/EPINEPHRINE 0.5% MPF 1:200,000 30 ML VIAL ONE (07:51)
--- NOTE | 2025-06-23 09:15 | Operative Report ---
PG Post Operative Report Pre & Post Diagnosis Operation Date: 06/23/25 07:00 Pre-Op Diagnosis: Right Hip Osteoarthritis Post-Op Diagnosis: Right Hip Osteoarthritis I identified the patient and participated in the time-out.: Yes Procedure Operation Date: 06/23/25 07:00 Actual Procedures p Right Total Hip Arthroplasty(Right) - Wood Barcenas MD Surgeon Wood Barcenas MD Material Worker Esdras Padilla PA-C Estimated Blood Loss 100 Findings Consistent with Post-Op Diagnosis Specimens Right femoral head sent for pathology. Anesthesia Type Spinal MAC Complications none Indications Patient is a 70-year-old female long-term patient of mine who has had about a year history of increasing right hip pain discomfort and disability. She failed conservative measures. She has had both knees replaced in the past. She became more limited by her hip pain and discomfort. She failed conservative measures. X-rays show advanced hip arthritis which has progressed over the past year. She would like to proceed with total hip arthroplasty. Description of Procedure Operative implants consists of: 1 Biomet G7 size 52 mm acetabular shell. 2. [place] hole wastewater engineer. 3. 6.5 cancellous acetabular screws 1 of 35 mm in length 1 to 30 mm length. 4. Highly cross-linked polyethylene liner with a 52 mm outer diameter and a 36 mm diameter. 5. DePuy Karaya size 11 KLA femoral stem. 6. +5/36 mm ceramic articular ball. The patient was taken to the op room, identified, placed on the operating table in the supine position. All conductors were appropriately padded. IV antibiotics arrived by anesthesia team. A spinal anesthetic and adductor canal block had provided holding area. Wilhelm catheter was placed in sterile fashion. The patient then placed in the left lateral cubitus position. An axillary roll was placed. A stool Birkett position was used for positioning. The right hip and leg were then prepped and draped in usual sterile fashion. A posterior lateral approach to the right hip was then performed to a curvilinear incision centered over the greater trochanter. Sharp dissection was carried through the subcutaneous tissue down to level the IT band gluteal fascia for the IT band gluteal fascia was then incised longitudinally in line with skin incision. The underlying greater bursa was excised. The piriformis and external rotators along with the posterior joint capsule were then released from the posterior aspect the hip taking great care to protect the sciatic nerve at all times. The hip was internally rotated and dislocated. A femoral neck osteotomy cut was made with Final Cut about 10 mm above the lesser trochanter. Femoral head was removed and sent for pathology. The femur was retracted anteriorly. Attention drawn to the acetabulum. The acetabulum labrum was excised. The pulmonary fat was excised. Sequential reaming the acetabular was then performed again with size 45 and progressing up to a 51. I then reamed a little bit with a 52 reamer and then placed a 52 mm acetabular cup in about 4 degrees lateral opening and 20 degrees of anteversion. It was fixed with two 6.5 screws. A trial liner was placed. Attention drawn the femur. The proximal femur was entered with cookie-cutter followed by canal finder. I then broached began size 8 and progressing up to 11. Get excellent fit at 11. We trialed the hip and the +5 articular ball provided appropriate stability and equal leg lengths. We elected to place these implants. All trial implants were removed. An apex hole wastewater engineer was placed. Highly cross-linked yard pilot the ethylene liner was placed. A size 11 KLA femoral stem was impacted in position. A +5/36 mm ceramic articular ball was placed. Hip was located and once again found to be stable. Attention drawn toward closing. The wounds irrigated coconuts with pulsatile lavage.. I did inject locally with 60 cc of half percent Marcaine with epinephrine. The posterior capsule extra rotators were then repaired through drill holes in the posterior trochanter with #2 Tycron suture. The IT band gluteal fascia was then closed with #1 PDS suture in a running fashion. The subcutaneous tissue was then closed with 2 layers with #2 Vicryl suture and then 2-0 Dexon suture in a buried interrupted fashion. The skin was closed with skin shima. The leg was then cleaned and dried. A Prevena VAC dressing was applied due to the thick soft tissue envelope. The patient was then transferred to the recovery room in stable condition. Patient tolerated the procedure well and there are no complications. Esdras Padilla, my physician printing bindery assistant, was present for the entire procedure. His assistance was required for proper patient positioning, prepping and draping, surgical exposure, retraction, perform the technical details of the operation, placement of the implants, closure of the incision site, and placement of postoperative sterile bandage. I attest to the content of the Intraoperative Record and any orders documented therein. Any exceptions are noted below.
--- NOTE | 2025-06-23 09:27 | Anesthesiology Progress Note ---
Date of Service June 23, 2025 Anesthesia Post Procedure Vital Signs Vital Signs: Temp Pulse Resp BP Pulse Ox O2 Del Method O2 Flow Rate 06/23/25 09:25 72 15 120/65 100 Room Air 06/23/25 09:15 62 15 121/60 99 Room Air 06/23/25 09:05 66 15 118/60 98 Oxymask 5 06/23/25 08:57 97.2 F L 65 17 104/57 L 96 Oxymask 5 06/23/25 05:38 98.2 F 76 20 146/81 H 96 Room Air Pain Intensity Right Hip: Pain Intensity: 0 Transfer of Care Handoff Completed per policy Notes Mental Status: alert / awake / arousable and participated in evaluation Patient Amnestic to Procedure: Yes Nausea / Vomiting: adequately controlled Pain: adequately controlled Airway Patency, RR, SpO2: stable & adequate BP & HR: stable & adequate Hydration State: stable & adequate Neuraxial Anesthesia: was administered and sensory block is resolving Anesthetic Complications: no major complications apparent and Pt Satisfied with anesthetic care
--- NOTE | 2025-06-23 09:31 | XRay Report ---
SINGLE VIEW PELVIS; SINGLE VIEW RIGHT HIP CLINICAL HISTORY: Postoperative examination. FINDINGS: An AP portable view of the hips and pelvis with a crosstable lateral portable view of the r ight hip are compared to study dated 02/05/2025. A bipolar right hip arthroplasty is in near-anatomic alignment. At least 2 cortical screws transfix the acetabular cup. No acute fracture is identified. T here are expected postoperative changes overlying the right hip including skin clips, subcutaneous ga s, and soft tissue swelling. Mild arthritic changes in the left hip. There is degenerative sclerosis of the sacroiliac joints and pubic symphysis. IMPRESSION: Expected postoperative findings status post right hip arthroplasty. No acute fracture is seen. ACT 112: Negative or not required by law. Electronically signed by: Leif Art M.D. 06/23/2025 9:30 AM
[2025-06-23] MEDS ORDERED: MAGNESIUM HYDROXIDE SUSP 30 ML UDC PO PRN (10:24)
[2025-06-23] MEDS ORDERED: NALOXONE HCL 0.4 MG/1 ML VIAL/CARP IV PRN (10:24)
[2025-06-23] MEDS ORDERED: HYDROmorphone INJ 0.5 MG/0.5 ML SYR IV PRN (10:24)
[2025-06-23] MEDS ORDERED: NON-FORMULARY MEDICATION (Multivitamin Tablet) PO SCH (10:24)
[2025-06-23] MEDS ORDERED: METOCLOPRAMIDE HCL INJ 5 MG/ML 2 ML VIAL IV PRN (10:24)
[2025-06-23] MEDS ORDERED: ALUMINUM/MAGNESIUM SUSP 30 ML UDC PO PRN (10:24)
[2025-06-23] MEDS ORDERED: ACETAMINOPHEN 500 MG TAB PO SCH (10:24)
[2025-06-23] MEDS: ATORVASTATIN 20 MG TAB PO SCH (11:21)
[2025-06-23] MEDS: KETOROLAC TROMETHAMINE 15 MG/ML VIAL IV SCH (11:21)
[2025-06-23] MEDS: SODIUM CHLORIDE 0.9% 1,000 ML IV SCH (11:21)
[2025-06-23] MEDS: DOCUSATE SODIUM/SENNA 50/8.6MG TAB PO SCH (12:19)
[2025-06-23] MEDS: SENNA 8.6 MG TAB PO SCH (12:19)
[2025-06-23] MEDS: OXYBUTYNIN CHLORIDE XL 5 MG TABCR PO SCH (12:19)
[2025-06-23] MEDS: LOSARTAN POTASSIUM 50 MG TAB PO SCH (12:20)
[2025-06-23] MEDS: ASPIRIN 81 MG ECTAB PO SCH (12:20)
[2025-06-23] MEDS: hydroCHLOROthiazide 25 MG TAB PO SCH (12:20)
[2025-06-23] MEDS: ASCORBIC ACID 500 MG TAB PO SCH (12:20)
[2025-06-23] MEDS: CALCIUM CARBONATE 1250MG TAB PO SCH (12:21)
[2025-06-23] MEDS: TRANEXAMIC ACID / 0.7% NACL 1,000 MG/100 ML BAG IV SCH (15:20)
[2025-06-23] MEDS ORDERED: ASCORBIC ACID 500 MG TAB PO SCH (17:00)
[2025-06-23] MEDS ORDERED: DOCUSATE SODIUM 100 MG CAP PO SCH (21:00)
[2025-06-23] MEDS ORDERED: SENNA 8.6 MG TAB PO SCH (21:00)
[2025-06-24 05:48] VITALS: TEMP 98.1
[2025-06-24 07:24] LABS: Hematocrit (blood only) 28.9 % (37.0-47.0); Hemoglobin 10.1 g/dl (12.0-16.0); Immature Granulocytes # (auto) 0.13 K/uL (0.01-0.20); Immature Granulocytes % (auto) 0.9 %; Mean Corpuscular Hemoglobin 30.7 pg (25.0-34.0); Mean Corpuscular Volume 87.8 fL (80.0-100.0); Platelet Count 196 K/uL (130-400); RDW Standard Deviation 44.0 fL (36.4-46.3); Red Blood Count 3.29 M/uL (4.20-5.40); White Blood Count 14.95 K/ul (4.8-10.8)
[2025-06-24 07:39] LABS: Anion Gap 9.0 (3-11); Blood Urea Nitrogen 21.0 mg/dl (6-23); Calcium 8.8 mg/dl (8.6-10.3); Carbon Dioxide 25.0 mmol/L (21-32); Chloride 108.0 mmol/L (98-107); Creatinine Clr Calc Pharmacy 84.4 ml/min; Glucose 129.0 mg/dl (70-99(Fasting)); Potassium 3.8 mmol/L (3.5-5.1); Sodium 142.0 mmol/L (136-145)
[2025-06-24 07:53] VITALS: BP 132/68; PULSE 74; RESP 13; O2SAT 94
[2025-06-24] MEDS: CEROVITE ADV FORMULA TAB PO SCH (08:27)
[2025-06-24] MEDS: dexAMETHasone 10 MG in SYRINGE 0 ML IV SCH (08:27)
--- NOTE | 2025-06-24 08:55 | Orthopedic Progress Note ---
Date of Service June 24, 2025 Assessment & Plan (1) S/P total right hip arthroplasty: * Continue Current Treatment * Disposition: home * Daily treatment: Physical Therapy/ Occupational Therapy per protocol * Weight bearing status: WBAT, precautions * Continue to monitor for ABLA * Pain control * DVT prophylaxis, ASA * Office/hospital f/u 2 weeks for progress check and staple/suture removal * Plan for discharge today pending PT/OT clearance Subjective . Active Problems: S/p right ARVIN POD 1 70 y/o female s/p right ARVIN. Doing well overall, pain managed and improved function. Denies fever/chills, chest pain/SOB, nausea/vomiting. Otherwise no complaints. Review of Systems All systems reviewed & are unremarkable except as noted in HPI & below. Physical Exam . * General: Alert and oriented, no acute distress * Constitutional: well-developed, well-nourished. * Respiratory: Normal respiratory effort, no distress * Gastrointestinal: No tenderness to palpation, no rigidity or guarding. * Skin: No rash or lesion. * Neurologic: Grossly normal * Musculoskeletal: Right hip surgical dressing, not removed for exam. Prevena VAC functioning. Otherwise no obvious deformity or overlying skin changes. Diffuse TTP proximal thigh and hip region. Otherwise no specific tenderness of distal thigh, lower leg, foot/ankle. AROM hip flexion intact. AROM foot/ankle intact. Sensation intact plantar/dorsal foot. Brisk capillary refill. Results & Data Results & Data Laboratory Results . Diagnostic Findings . PG Care Time/CCT Total # of Minutes Spent Total Time Spent with Patient: Total time spent is greater than 50% in coordination of care (as documented) at patient's floor/unit and/or counseling patient: Coding Level of Care Code 56586 Post Operative Follow-Up Diagnoses S/P total right hip arthroplasty Z96.641
[2025-06-24] MEDS ORDERED: MULTIVITAMIN TAB PO SCH (09:00)
== END 2025-06-24 12:29 | disposition home health service (06) ==
LOC: ASU 05:17 → 3E 05:17